=== PATIENT | female | born 1955 | race Caucasian/White ===

== ENCOUNTER → 2017-05-24 | Outpatient (CLI) | payer BC, OTHER ==
[~2017-05-24] MED LIST: ASPIRIN BUFFER325 MG PO; ASPIRIN325 PO; ASTEPRO; ATENOLOL-CHLOR1 EACH PO; B12INJ INJ; BENADRYL25 MG PO; CELEBREX PO; CHANTIX1 MG; CLARINEX5 MG; CLARINEX5 MG PO; COLESTID1 GM PO; DEPAKOTE 250MG250 M1 PO; DEPAKOTE500 MG PO; DIVALPROEX SOD250 M3 PO; LEVOCETIRIZINE D5 MG PO; LISINOPRIL-HCT1 EAC1 PO; MUCINEX600 MG; NEURONTIN 300300 M1 PO; NORCO 5-325 TA1 EACH PO; PATANASE30.5 GM NS; PEPTO-BISMOL262 M1 PO; PRINZIDE 10-121 EACH PO; PROMETRIUM200 MG PO; REQUIP0.5 MG PO; SERTRALINE HCL25 MG PO; TOPAMAX 25 MG T25 M1 PO; ZESTORETIC 20-1 EAC3 PO; [UNRECOGNIZED DRUG - OTHER] INH; [UNRECOGNIZED DRUG - OTHER] INJ; [UNRECOGNIZED DRUG - OTHER] NASAL
== END ==
LOC: RAD 01:48
DX: Z12.31 Encounter for screening mammogram for malignant neoplasm of breast (principal)

== ENCOUNTER → 2018-01-04 | Outpatient (CLI) | payer BC, OTHER | LOC: MRI 06:07 | DX: M47.26 Other spondylosis with radiculopathy, lumbar region (principal); Z88.8 Allergy status to other drugs, medicaments and biological substances ==

== ENCOUNTER → 2019-08-03 | Outpatient (CLI) | payer BC, OTHER | LOC: RAD 11:47 | DX: Z12.31 Encounter for screening mammogram for malignant neoplasm of breast (principal) ==

== ENCOUNTER → 2021-09-22 | Outpatient (CLI) | payer BC, OTHER | LOC: BC 09:24 | PROVIDERS: ATTEND Internal Medicine | DX: N63.10 Unspecified lump in the right breast, unspecified quadrant (principal); N63.20 Unspecified lump in the left breast, unspecified quadrant; R92.8 Other abnormal and inconclusive findings on diagnostic imaging of breast ==